=== PATIENT | male | born 1975 | race Two or more races ===

== ENCOUNTER 2024-12-12 20:58 | Emergency (ER) | payer OTHER ==
[~2024-12-12] VITALS: Ht 185.4 cm; Wt 111.1 kg
[2024-12-12] MEDS ORDERED: BETAXOLOL HCL10 MG PO (21:28)
[2024-12-12] MEDS ORDERED: KETOROLAC TROMETHAMINE 30 MG VIAL IM STA ×2 (21:53→22:02)
[2024-12-12] MEDS ORDERED: KETOROLAC TROMETHAMINE 30 MG VIAL ONE (22:13)
[2024-12-12] MEDS ORDERED: TRAM1TAB98 PO (23:28)
== END 2024-12-13 01:07 | disposition home or self-care (01) ==
LOC: ER 21:01
DX: S82.291A Other fracture of shaft of right tibia, initial encounter for closed fracture (principal); S93.491A Sprain of other ligament of right ankle, initial encounter; W17.89XA Other fall from one level to another, initial encounter; Y93.89 Activity, other specified; Y92.89 Other specified places as the place of occurrence of the external cause; I49.8 Other specified cardiac arrhythmias; K57.32 Diverticulitis of large intestine without perforation or abscess without bleeding